=== PATIENT | female | born 1990 | race Caucasian/White ===

== ENCOUNTER 2017-09-07 18:12 | Emergency (ER) | payer BC, MEDICAID ==
[2017-09-07] MEDS ORDERED: NS 0.9% 1000 ML* 2,000 ML IV ONE (18:52)
[2017-09-07] MEDS ORDERED: diPHENhydraMINE IV* 50 MG/ML 1 ml VIAL (BENADRYL) IM ONE (18:52)
[2017-09-07] MEDS ORDERED: Ketorolac INJ* 30 MG/ML 1 ML VIAL IV ONE (18:52)
[2017-09-07] MEDS ORDERED: PROCHLORPERAZINE INJ 5 MG/ML 2 ML VIAL IV ONE (18:57)
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
[2017-09-07 21:00] VITALS: BP 127/71
--- NOTE | 2017-09-08 05:36 | ED ---
Polly Oshea Rebecca, scribed for Roni Bolton MD on 09/07/17 at 2024 . Progress - Progress Note Progress Note: Pt was signed out by Dr. Mars. Course/Dx - Course Course Of Treatment: Pt is a 26 y/o F with a Hx of migraine, came in with [facility] for a few days, currently wasnt responding to what she normally does at home. Dr. Mars medicated with fluids, Toradol, Benadryl, and Compazine. Pt reports feeling better and is requesting to be D/C at this time. - Diagnoses Provider Diagnoses: Headache Discharge - Sign-Out/Discharge Documenting (check all that apply): Discharge/Admit/Transfer - Discharge, Receiving Sign-Out Receiving patient FROM: Jose R Mars - Discharge Plan Condition: Stable Disposition: HOME Patient Education Materials: Acute Headache (ED) Referrals: Feliciano Calderon MD [Primary Care Provider] - 3 Days Additional Instructions: RETURN TO EMERGENCY DEPARTMENT FOR ANY RETURNING OR WORSENING SYMPTOMS. The documentation as recorded by the Polly avitia Rebecca accurately reflects the service I personally performed and the decisions made by me, Roni Botlon MD.
== END 2017-09-07 20:58 | disposition home or self-care (01) ==
LOC: ED 18:12
DX: G43.909 Migraine, unspecified, not intractable, without status migrainosus (principal); F41.0 Panic disorder [episodic paroxysmal anxiety]; Z88.5 Allergy status to narcotic agent; Z88.8 Allergy status to other drugs, medicaments and biological substances; Z87.891 Personal history of nicotine dependence
CPT/HCPCS: 96372; 96374; 96375; 99282; J0780; J1200; J1885

== ENCOUNTER 2018-07-03 05:48 | Emergency (ER) | payer BC ==
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
--- OUTSIDE RECORDS SUMMARY | 2018-07-03 05:55 | XMS REPORT ---
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 Problem Neuropathic pain G56.90 Active 486385936 of upper extremity Problem Balance problem R26.89 Active 790143230 Problem Hyperplastic polyp K63.5 Active 37351162 of sigmoid colon Problem Intractable G43.019 Active 108481123 migraine without aura and without status migrainosus Problem Mixed E78.2 Active 869686557 hyperlipidemia Problem Migraine without G43.009 Active 744139618 aura and without status migrainosus, not intractable Problem Lichen simplex, L28.0 Active 24421319 chronic Problem New daily G44.52 Active 915743268 persistent headache Problem BMI Z68.34 Active 303163613 34.0-34.9,adult Problem Dysthymic disorder F34.1 Active 35280383 Problem Obesity (BMI E66.9 Active [id number] 30.0-34.9) ALLERGIES Substance Reaction Event Type Date Status Paxil Unknown Drug Allergy Jun, Active Morphine Sulfate Unknown Drug Allergy Jun, Active ENCOUNTERS Encounter Location Date Diagnosis [facility] [address] [place], [place] [address] [facility] [address] [place], [place] [address] [facility] [address] [place], [place], [place] [address] infection J06.9 and Migraine without aura and without status migrainosus, not intractable G43.[address] [place], [place] [address] [facility] [address] [place], [place] [address] [place], [place] [address] [facility] [address] [place], [place] [address] [facility] [address] [place] [address] [facility] [address] [place] [place] [address] [facility] [address] [place] [address] [place], [place] [address] Jan, Panic disorder [place] agoraphobia F40.01 [address] Dec, [place] [address] [facility] [address] [place], [place] [address] [facility] [address] [place] [address] [place], [place], [place] [address] agoraphobia F40.01 ; Intractable migraine without aura and without status migrainosus G43.019 ; NSAID long-term use Z79.1 and Chest pressure R07.[address] [place], [place] [address] [place], [place] [address] [place], [place] [address] [facility] [address] [place], [place], [place] [address] test reading Z11.[address] [place], PPD screening test Z11.1 [place] [address] [facility] [address] [place], [place] [address] [facility] [address] [place], [place], [place] [address] examination related to employment Z02.1 ; Lichen simplex, chronic L28.0 ; Obesity (BMI 30.0-34.9) E66.9 and BMI 34.0-34.9,adult Z68.[address] [place], Dysthymic disorder F34.1 [place] [address] [facility] [address] [place], [place], [place] [address] pain R10.84 ; Dysthymic disorder F34.1 ; New daily persistent headache G44.52 ; Obesity (BMI 30-39.9) E66.9 and BMI 34.0-34.9,adult Z68.[address] [place], [facility] [place] [address] [facility] [address] [place], [place], [place] [address] pain R10.84 ; Other specified related conditions, unspecified trimester O26.899 ; New daily persistent headache G44.52 ; Obesity (BMI 30-39.9) E66.9 ; BMI 30.0-30.9,adult Z68.30 and Need for influenza vaccination Z23 [address] Dec, [facility] [place] [address] [facility] [address] [place], [place], [place] [address] abdominal pain R10.[address] Sep, [place] [address] [facility] [address] [place], [place] [address] [facility] [address] [place], [place] [address] [place], [facility] [place] [address] [facility] [address] [place] [address] [place] [facility] [address] [place] [address] [facility] [address] [place], [place] [address] [facility] [address] [place], [place] [address] abdominal pain R10.31 ; Right upper quadrant abdominal pain R10.11 and Balance problem R26.89 [place] [facility] [address] [place], [place] [address] [place], [place] [address] Geoff Gray [address] [place], [place] [address] Jun, Dysthymia F34.1 [place] [address] [facility] [address] [place], [place], [place]ysthym[place] F34.1 [place] [address] [place], [place] [address] [facility] [address] [place], [place] [address] [facility] [address] [place], [place] [address] agoraphobia F40.01 ; Dysthymic disorder F34.1 and Rash R21 [address] [place], Dysthymic disorder F34.1 [place] [address] agoraphobia F40.[address] [place], [place] [address] [place], Dysthymic disorder F34.1 [place] [address] agoraphobia F40.[address] [place], Dysthymic disorder F34.1 [place] [address] [place], [place] [address] [facility] [address] [place], [place] [address] immunization Z23 ; Dysthymic disorder F34.1 ; Pain in right leg M79.604 and Right lower quadrant abdominal tenderness R10.813 [place] [facility] [address] [place], [place] [address] [facility] [address] [place] [place] [address] [place] [place], [place] [address] [facility] [address] [place], [place] [address] [place] [facility] [address] [place], [place] [address] [facility] [address] [place], [place], [place] [address] extremity G56.90 ; Dysthymia F34.1 and Elevated blood pressure reading without diagnosis of hypertension R03.0 [facility] [address] [place] [address] [place], [place] [address] [facility] [address] [place] [address] [place], [place], Pain [place] M79.601 [place] [address] ; Pain of left arm M79.602 and Myalgia M79.1 Facilitated Enrollment - UNKNOWN Jun, [place] [facility] [address] [place], [place] [address] [facility] [address] [place], [place] [address] [facility] [address] [place] [address] [place], [place], [place] [address] agoraphobia F40.[address] [place], Panic disorder [place] agoraphobia F40.01 and [address] Dysthymia F34.1 [facility] [address] [place] [address] [place], [place] [address] Jun, Panic disorder with [place] agoraphobia F40.01 and [address] Dysthymia F34.[address] [place], Panic disorder [place] agoraphobia F40.01 [address] [place], Panic disorder [place] agoraphobia F40.01 and [address] Dysthymia F34.1 [facility] [address] [place] [address] [place], [place], [place] [address] agoraphobia F40.[address] [place], Dysthymia F34.[address] [place] disorder with agoraphobia [address] [address] [place], [place] [address] [place], Dysthymia F34.[address] [place] disorder with agoraphobia [address] [address] [place], [place] [address] [facility] [address] [place], [place] [address] [facility] [address] [place] [address] [place], [place], [place] [address] hematuria N30.[address] [place] [address] [place], [place], Tendonitis 726.90 [place] [address] [place], [place] [address] [facility] [address] [place] [address] [place], [place] [address] [facility] [address] [place] [address] [place], [place] [address] Jun, [place] [address] [facility] [address] [place] [address] [place], [place], Knee pain, [place] 719.46 [place] [address] [facility] [address] [place] [address] [place], [place], Knee pain, [place] 719.46 [place] [address] [facility] [address] [place] [address] [place], [place] [address] [facility] [address] [place] [address] [place], [place], Skin [place] 709.8 [place] [address] [facility] [address] [place] [address] [place], [place] [address] [place], [place], Sibilant rhonchi 786.07 [place] [address] [facility] [address] [place] [address] [place], [place], [place] [address] 300.4 ; Fatigue 780.79 and Rash 782.1 [facility] [address] [place], [place] [address] [facility] [address] [place] [address] [place], [place] [address] [place], [place] [address] [facility] [address] [place] [address] [place], [place], Scab[place] 133.0 [place] [address] [place] [id number] [facility] Oct, Impacted cerumen 380.4 [place] [address] [place], [place] [address] [place], [place] [address] [place], Dysthymic disorder 300.4 [place] and Posttraumatic stress [address] disorder [address] [place], Dysthymic disorder 300.4 [place] [address], [place], Dysthymic [place] 300.4 [place] [address] and Congenital hallux valgus 755.[address] [place], [place] [address] [place], Dysthymic disorder 300.4 [place] [address] [place], Dysthymic disorder 300.4 [place] and Posttraumatic stress [address] disorder [address], [place] [address], [place], [place] [address] 755.66 and Depression with anxiety [address], [place] [address], [place] [address], [place] [address] [place], [place] [address], [place] [address], [place], [place] [[place] [address] infection] 599.0 ; Pain in joint, lower leg 719.46 and Depression with anxiety 300.[address], [place] [address] [place], [place] [address] defined subpopulation V70.5 IMMUNIZATIONS No Known Immunizations SOCIAL HISTORY Never Assessed REASON FOR REFERRAL FUNCTIONAL STATUS PLAN OF CARE Activity Details Follow Up prn Reason: VITAL SIGNS Temperature 98.5 degrees Fahrenheit 2018-06-25 Heart Rate 20 2018-06-25 Weight 194.2 2018-06-25 Height 5'5" in 2018-06-25 BMI 32.31 kg/m2 2018-06-25 Oximetry 98 % 2018-06-25 Blood pressure systolic 118 mm Hg 2018-06-25 Blood pressure diastolic 80 mm Hg 2018-06-25 MEDICATIONS Medication Instructions Dosage Frequency Start End Duration Status Date Date Cymbalta 30 MG Orally Once a 1 capsule 24h 21 Jun, day(s) Not-Takin day 2016 g Topiramate 50 Orally Twice a 1 tablet 12h Mar, day(s) Not-Takin MG day 2016 g Amoxicillin 500 Orally three x 1 capsule Active mg daily Sumatriptan Subcutaneous 0.5 ml as 12h Jun, day(s) Active Succinate 6 Twice a day needed 2019 MG/0.5ML Omeprazole 40 Orally Once a 1 capsule 24h Not-Takin MG day g Fluticasone Nasally Once a 1 spray in 24h 25 Jun, day(s) Active Propionate 50 day each 2018 MCG/ACT nostril Ibuprofen 200 Orally Three 1 tablet 8h Active MG times a day with food or milk as needed Alprazolam 0.5 Orally BID prn 1 tablet, May, Active MG panic MDD 2 2015 Aleve 220 MG Orally every 12 1 tablet 12h Not-Takin hrs as needed g Depo-Provera 1 ml Not-Takin 150 MG/ML g PROCEDURES Procedure Date Ordered Result Body Site SPECIMEN HANDLING Jun 25, 2018 BODY MASS INDEX DOCD Jun 25, 2018 SMOKING + 2ND HAND ASSESSED Jun 25, 2018 Oxygen saturation results documented and reviewed Jun 25, 2018 BLOOD PRESSURE, MEASURED Jun 25, 2018 RESULTS Name Result Date Reference Range -Urine/Lab Specimen Collection 2018-06-25 -INFLUENZA TYPE A/B AND RSV RNA,QL RT-PCR 2018-06-25 INFLUENZA A RNA,PCR NOT DETECTED NOT DETECTED INFLUENZA B RNA,PCR NOT DETECTED NOT DETECTED RSV RNA,PCR NOT DETECTED NOT DETECTED REASON FOR VISIT cold , c/o pain in both ears,migraines for a month, tooth ache ,and nasal congestion since monday., Patient is taking amoxillin 500mg prescribed by her dentist. Went to [facility] and was diagnose with Pelvic floor disfuntion and painful bladder syndrome, [facility]ACI requested. Insurance Providers [facility] Health Member Patient Patient Patient Patient Patient Subscriber Subscriber Subscriber Group Insurance Plan Plan Plan Plan ID Relationship Address Phone Name Date of ID Name Date of No Type Insurance Insurance Insurance Coverage to Subscriber Address Phone Name Dates Medicaid [id number] [phone] Medicaid self [place] [id number] Wrap [facility] [address] [place] [address] Blue [phone] Blue self Macken[place] [id number] Choice Opt [phone] 89 Choice Opt e [place] [address] [place] [address] FQHC Slide [phone] FQHC Slide self Mack[place] [id number] F Medical [place] 02 F Medical [place] 50 [place] [address] 50 percent FQHC Slide [phone] FQHC Slide self Macken[place] [id number] F Dental [place] 02 F Dental [place] [address] 50 Percent Excellus [phone] Excellus self Macken[place] [id number] Essential [id number] 89 Essential e [place] 6 Plan 1 2 [place] Plan 1 2 Medical [address] Medical FHP [place]zmán [phone] FHP [place]zmán self Mackenzi [id number] Plan Med [id number] Plan Med e [place] 8 [facility] [address] Medicaid [id number] Medicaid self Vinoden[place] [id number] [facility] 00 e [place] [address] [facility] Slide [phone] [facility] Slide self Macken[place] [id number] F Family [place] 02 [place] [address] Planning 70 Percent 70 Percent FHP Guzmán [phone] FHP [place]zmán self Mackenzi [id number] Plan [id number] Attn 83 Plan e [place] Dental Claims Dental HPlex Dept HPlex [facility] [address] Blue [phone] Blue self Mackenzi [id number] Choice Opt 9255 Attn 83 Choice Opt e [place] GG457 Kinney Claims [id number] Kinney Hplex [place] Dept Hplex [place] [facility] [address] Blue [phone] Blue self Mackenzi [id number] Choice Opt [id number] 89 Choice Opt e [place] 8 Medical [place] [address] HealthPlex [phone] HealthPlex self Farnazi [id number] [phone] Attn 83 [id number] e Chery [id number] Dental Claims Dental Exchange Dept Exchange [facility] [address] Blue [phone] Blue self [place] [id number] Choice Opt 9255 Attn 83 Choice Opt e Chery GG457 Kinney Claims [id number] Kinney Hplex [place] Dept Hplex [place] [facility] [address] Case [phone] Case self [place] [id number] Management [place] 02 Management e [facility] [address] [facility] MEDICAL (GENERAL) HISTORY Type Description Date Medical [...]
--- OUTSIDE RECORDS SUMMARY | 2018-07-03 05:55 | XMS REPORT ---
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 Problem Neuropathic pain G56.90 Active 957695501 of upper extremity Problem Obesity (BMI E66.9 Active [id number] 30.0-34.9) Problem Hyperplastic polyp K63.5 Active 53926157 of sigmoid colon Problem Intractable G43.019 Active 277425494 migraine without aura and without status migrainosus Problem Lichen simplex, L28.0 Active 25214595 chronic Problem Balance problem R26.89 Active 577735649 Problem New daily G44.52 Active 427531072 persistent headache Problem BMI Z68.34 Active 136062087 34.0-34.9,adult Problem Dysthymic disorder F34.1 Active 85589405 ALLERGIES No Information ENCOUNTERS Encounter Location Date Diagnosis [facility] [address] [place], [place] [address] [facility] [address] [place], [place] [address] [place], [place] [address] [facility] [address] [place] [address] Jun, [place] [address] [facility] [address] [facility] [place], [place] [address] [facility] [address] [place] [address] [place], [place] [address] [facility] [address] [facility] [address] [place], [place] [address] [facility] [address] [facility] [place], [place] [address] Jan, Panic disorder with [place] agoraphobia F40.01 [address] Dec, [place] [address] [facility] [address] [place] [address] [place], [place] [address], [place], [place] [address] agoraphobia F40.01 ; Intractable migraine without aura and without status migrainosus G43.019 ; NSAID long-term use Z79.1 and Chest pressure R07.[address] [place], [place] [address] [place], [place] [address] [place], [place] [address], [place], [place] [address] test reading Z11.[address] [place], PPD screening test Z11.1 [place] [address], [place] [address], [place], [place] [address] examination related to employment Z02.1 ; Lichen simplex, chronic L28.0 ; Obesity (BMI 30.0-34.9) E66.9 and BMI 34.0-34.9,adult Z68.[address] [place], Dysthymic disorder F34.1 [place] [address], [place], [place] [address] pain R10.84 ; Dysthymic disorder F34.1 ; New daily persistent headache G44.52 ; Obesity (BMI 30-39.9) E66.9 and BMI 34.0-34.9,adult Z68.[address] [place] Jan, Health Medical [place] [address] [facility] [address] [facility] [place], [place], [place] [address] pain R10.84 ; Other specified related conditions, unspecified trimester O26.899 ; New daily persistent headache G44.52 ; Obesity (BMI 30-39.9) E66.9 ; BMI 30.0-30.9,adult Z68.30 and Need for influenza vaccination Z23 [place] Dec, [place] [address] [facility] [address] [place], [place], [place] [address] abdominal pain R10.31 [facility] [address] [facility] Sep, [place] [address] [facility] [address] [place], [place] [address] [facility] [address] [place], [place] [address] Sep, [facility] Medical [place] [address] [facility] [address] [place], [place] [address] [place] [facility] [address] [place] [address] [facility] [address] [place], [place] [address] [facility] [address] [place], [place], [place] [address] abdominal pain R10.31 ; Right upper quadrant abdominal pain R10.11 and Balance problem R26.89 [place] [facility] [address] [place], [place] [address] [facility] [address] [facility] Jun, [place] [address] Jun, [facility] Medical [place] [address] [facility] [address] [facility] Jun, Dysthymia F34.1 [place] [address] [facility] [address] [facility] [place], Jun, [place] F34.1 [place] [address] [facility] [address] [facility] [place], [place] [address] [facility] [address] [place], [place] [address] [place] [facility] [address] [place], [place], [place] [address] agoraphobia F40.01 ; Dysthymic disorder F34.1 and Rash R21 [facility] [address] [facility] [place], Dysthymic disorder F34.1 [place] [address] agoraphobia F40.01 [facility] [address] [facility] [place], [place] [address] [facility] [address] [facility] [place], Dysthymic disorder F34.1 [place] and Panic disorder [place] [address] agoraphobia F40.01 [facility] [address] [facility] [place], Dysthymic disorder F34.1 [place] [address] [facility] [address] [place] [address] [place], [place] [address] [facility] [address] [facility] [place], [place] [address] immunization Z23 ; Dysthymic disorder F34.1 ; Pain in right leg M79.604 and Right lower quadrant abdominal tenderness R10.813 [facility] [address] [facility] [place], [place] [address] [facility] [address] [facility] [address] [place], [address] [place] [address] [facility] [address] [place] [address] [place], [place] [address] [facility] [address] [place], [place] [address] [place] [facility] [address] [place], [place] [address] [place] [facility] [address] [place], [place], [place] [address] extremity G56.90 ; Dysthymia F34.1 and Elevated blood pressure reading without diagnosis of hypertension R03.0 [place] [facility] [address] [place], [place] [address] [place] [facility] [address] [place], [place], Pain in [place] M79.601 [place] [address] ; Pain of left arm M79.602 and Myalgia M79.1 Facilitated Enrollment - UNKNOWN Jun, [place] [facility] [address] [place], [place] [address] [facility] [address] [place], [place] [address] [facility] [address] [place], [place], [place] [address] agoraphobia F40.[address] Jun, Panic disorder with Street [place] agoraphobia F40.01 and [address] Dysthymia F34.1 [facility] [address] [facility] [place], [place] [address] Jun, Panic disorder [place] agoraphobia F40.01 and [address] Dysthymia F34.[address] Jun, Panic disorder [place] agoraphobia F40.01 [address] [place], Panic disorder [place] agoraphobia F40.01 and [address] Dysthymia F34.1 [facility] [address] [place] [address] [place], [place], [place] [address] agoraphobia F40.[address] [place], Dysthymia F34.1 and Panic [place] disorder with agoraphobia [address] [address]40[address] [place], [place] [address] [place], Dysthymia F34.1 and Panic [place] disorder with agoraphobia [address] [address] [place], [place] [address] [facility] [address] [place], [place] [address] [facility] [address] [place], [place], [place] [address] hematuria N30.01 [facility] [address] [facility] [place], Nov, [place]end[place]itis 726.90 [place] [address] Nov, [place] [address] [facility] [address] [place], [place] [address] [facility] [address] [facility] [place], [place] [address] Jun, [place] [address] [facility] [address] [facility] [place], Jun, Knee pain, [place] 719.46 [place] [address] [facility] [address] [facility] [place], [place], Knee pain, [place] 719.46 [place] [address] [facility] [address] [facility] [place], [place] [address] [facility] [address] [facility] [place], [place], [place] 709.8 [place] [address] [facility] [address] [facility] [place], [place] [address] [facility] [address] [facility] [place], [place], Sibil[place] 786.07 [place] [address] [facility] [address] [facility] [place], [place], [place] [address] 300.4 ; Fatigue 780.79 and Rash 782.1 [facility] [address] [place] [address] [place], [place] [address] [facility] [address] [facility] [place], [place] [address] Jan, [place] [address] [facility] [address] [facility] [place], Nov, [place]ab[place] 133.0 [place] [address] Oct, Impacted cerumen 380.4 [place] [address] [facility] [address] [facility] [place], [place] [address] [facility] [address] [facility] [place], [place] [address] Jul, Dysthymic disorder 300.4 [place] and Posttraumatic stress [address] disorder [address] Jul, Dysthymic disorder 300.4 [place] [address] [facility] [address] [facility] [place], [place], Dysthym[place] 300.4 [place] [address] and Congenital hallux valgus 755.[address] Jul, [place] [address] Jun, Dysthymic disorder 300.4 [place] [address] Jun, Dysthymic disorder 300.4 [place] and Posttraumatic stress [address] disorder 309.81 [facility] [address] [facility] [place], [place] [address] [facility] [address] [facility] [place], [place] [address] 755.66 and Depression with anxiety 300.4 [facility] [address] [facility] [place], [place] [address] [facility] [address] [facility] [place], [place] [address] [facility] [address] [facility], [place] [address] [place], [place] [address] [facility] [address] [facility] [place], [place] [address] [facility] [address] [facility] [place], [place], U[place] [address] infection] 599.0 ; Pain in joint, lower leg 719.46 and Depression with anxiety 300.4 [facility] [address] [facility] [place], [place] [address] Oct, [place] [address] defined subpopulation V70.5 IMMUNIZATIONS No Known Immunizations SOCIAL HISTORY Never Assessed REASON FOR REFERRAL FUNCTIONAL STATUS PLAN OF CARE VITAL SIGNS MEDICATIONS Unknown Medications PROCEDURES No Known procedures RESULTS No Results REASON FOR VISIT Information Insurance Providers [facility] Member Patient Patient Patient Patient Patient Subscriber Subscriber Subscriber Group Insurance Plan Plan Plan Plan ID Relationship Address Phone Name Date of ID Name Date of No Type Insurance Insurance Insurance Coverage to Subscriber Address Phone Name Dates [facility] [phone] [facility] self [place] [id number] Attn [id number] e Chery [id number] Dental Claims Dental Exchange Dept Exchange [facility] [address] FHP Guzmán [phone] FHP Guzmán self [place] [id number] Plan Med [id number] Plan Med e [place] 8 [facility] [address] FLCH Slide [phone] FLCH Slide self [place] [id number] F Family [place] 02 [place] [address] Planning 70 Percent 70 Percent Blue [phone] Blue self Mack[place] [id number] Choice Opt [id number] 89 Choice Opt e [place] 4 [place] Medical [address] FQHC Slide [phone] FQHC Slide self [place] [id number] F Dental [place] 02 F Dental [place] [address] 50 Percent FQHC Slide [phone] FQHC Slide self [place] [id number] F Medical [place] 02 F Medical [place] [address] 50 percent Medicaid [id number] [phone] Medicaid self [place]en[place] [id number] [facility] 00 e [place] [address] FHP Guzmán [phone] FHP Guzmán self Mackenzi [id number] Plan [id number] Attn 83 Plan e [place] Dental Claims Dental HPlex Dept HPlex [facility] [address] Blue [phone] Blue self Macken[place] [id number] Choice Opt 9255 Attn 83 Choice Opt e [place] [id number] Barber Claims [id number] Barber Hplex [place] Dept Hplex [place] [facility] [address] Blue [phone] Blue self Mack[place] [id number] Choice Opt [id number] 89 Choice Opt e [place] 8 Medical [place] Medical [address] Medicaid [phone] Medicaid self [place] [id number] Wrap [facility] 56 Wrap e [place] [address] Blue [phone] Blue self Mackenzi [id number] Choice Opt 9255 Attn 83 Choice Opt e [place] [id number] Barber Claims [id number] Barber Hplex [place] Dept Hplex [place] [facility] [address] Case [phone] Case self [place] [id number] Management Geoff Gray 02 Management [facility] [address] [facility] MEDICAL (GENERAL) HISTORY Type [...]
--- OUTSIDE RECORDS SUMMARY | 2018-07-03 05:55 | XMS REPORT ---
:1990 Author Organization [facility] Address [address] [place] [address] Care Team Providers Name Role Phone Feliciano Calderon Unavailable Unavailable PROBLEMS Type Condition ICD9-CM [id number] Onset Condition SNOMED Code Code Code Dates Status Problem Mixed E78.2 Active 735678854 hyperlipidemia Problem Panic disorder F40.01 Active 38587921 with agoraphobia Problem Neuropathic pain G56.90 Active 381337607 of upper extremity Problem Obesity (BMI E66.9 Active [id number] 30.0-34.9) Problem Hyperplastic polyp K63.5 Active 96719274 of sigmoid colon Problem Intractable G43.019 Active 194967178 migraine without aura and without status migrainosus Problem Lichen simplex, L28.0 Active 50426193 chronic Problem Balance problem R26.89 Active 092440254 Problem New daily G44.52 Active 534738687 persistent headache Problem BMI Z68.34 Active 458314931 34.0-34.9,adult Problem Dysthymic disorder F34.1 Active 70077179 ALLERGIES No Information ENCOUNTERS Encounter Location Date Diagnosis [facility] [address] [place], [place] [address] [facility] [address] [place], [place] [address] [facility] [address] [place], [place] [address] [facility] [address] [place] [address] [facility] [address] [place] [address] [place], [facility] [place] [address] [facility] [address] [facility] [place], [place] [address] [facility] [address] [facility] [place], [place] [address] [facility] [address] [facility] [address] [place], [address] [address] [facility] [address] [facility] [place], [place] [address] Jan, Panic disorder with Street [place], [place] agoraphobia F40.01 [address] [place], [place] [address] [facility] [address] [facility] [place], [place] [address] [facility] [address] [place] [address] [place], [place], [place] [address] agoraphobia F40.01 ; Intractable migraine without aura and without status migrainosus G43.019 ; NSAID long-term use Z79.1 and Chest pressure R07.[address] [place], [place] [address] [place], [place] [address] [place], [place] [address] [facility] [address] [place] [address] [place], [place], [place] [address] test reading Z11.[address] [place], PPD screening test Z11.1 [place] [address] [facility] [address] [place] [address] [place], [place] [address] [place], [place], [place] [address] examination related to employment Z02.1 ; Lichen simplex, chronic L28.0 ; Obesity (BMI 30.0-34.9) E66.9 and BMI 34.0-34.9,adult Z68.[address] [place], Dysthymic disorder F34.1 [place] [address] [facility] [address] [facility] [place], [place], [place] [address] pain R10.84 ; Dysthymic disorder F34.1 ; New daily persistent headache G44.52 ; Obesity (BMI 30-39.9) E66.9 and BMI 34.0-34.9,adult Z68.[address] Jan, [facility] Medical [place] [address] [facility] [address] [place], [place], [place] [address] pain R10.84 ; Other specified related conditions, unspecified trimester O26.899 ; New daily persistent headache G44.52 ; Obesity (BMI 30-39.9) E66.9 ; BMI 30.0-30.9,adult Z68.30 and Need for influenza vaccination Z23 [address] Dec, [facility] [place] [address] [facility] [address] [place] [place], [place], [place] [address] abdominal pain R10.[address] [place], [place] [address] [place] [facility] [address] [place] [place], [place] [address] [facility] [address] [place] [place], [place] [address] Sep, [facility] [place] [address] [facility] [address] [place] [place], [place] [address] [facility] [address] [place] [place], [place] [address] [facility] [address] [place], [place] [address] [facility] [address] [place], [place], [place] [address] abdominal pain R10.31 ; Right upper quadrant abdominal pain R10.11 and Balance problem R26.89 [place] [facility] [address] [place], [place] [address] [place], [place] [address] Jun, [facility] Medical [place] [address] [facility] [address] [place] [address] Jun, Dysthymia F34.1 [place] [address] [facility] [address] [facility] [place], [place], [place] F34.1 [place] [address] [facility] [address] [facility] [place], [place] [address] [facility] [address] [place], [place] [address] [place] [facility] [address] [place], [place], [place] [address] agoraphobia F40.01 ; Dysthymic disorder F34.1 and Rash R21 [facility] [address] [place] [address] [place], Dysthymic disorder F34.1 [place] and Panic disorder with [address] agoraphobia F40.01 [facility] [address] [place] [address] [place], [place] [address] [facility] [address] [place] [address] [place], Dysthymic disorder F34.1 [place] and Panic disorder with [address] agoraphobia F40.01 [facility] [address] [place] [address] [place], Dysthymic disorder F34.1 [place] [address] [facility] [address] [place] [address] [place], [place] [address] [facility] [address] [facility] [place], [place] [address] immunization Z23 ; Dysthymic disorder F34.1 ; Pain in right leg M79.604 and Right lower quadrant abdominal tenderness R10.813 [facility] [address] [facility] [place], [place] [address] [facility] [address] [facility] [address] [place], [address] [place] [address] [facility] [address] [place] [address] [place], [place] [address] [facility] [address] [place], [place] [address] [place] [facility] [address] [place], [place] [address] [facility] [address] [place], [place], [place] [address] extremity G56.90 ; Dysthymia F34.1 and Elevated blood pressure reading without diagnosis of hypertension R03.0 [place] [facility] [address] [place] [place], [place] [address] [place] [facility] [address] [place], 08 Apr, 2016 Pain in [place] M79.601 [place] [address] ; Pain of left arm M79.602 and Myalgia M79.1 Facilitated Enrollment - UNKNOWN [place], [place] [facility] [address] [place] [place], [place] [address] [place] [facility] [address] [place], [place] [address] [place] [facility] [address] [place], [place], [place] [address] agoraphobia F40.[address] [place], Panic disorder [place] agoraphobia F40.01 and [address] Dysthymia F34.1 [place] [facility] [address] [place], [place] [address] [place], Panic disorder [place] agoraphobia F40.01 and [address] Dysthymia F34.[address] Jun, Panic disorder [place] agoraphobia F40.01 [address] [place], Panic disorder [place] agoraphobia F40.01 and [address] Dysthymia F34.1 [facility] [address] [facility] [place], [place], [place] [address] agoraphobia F40.[address] [place], Dysthymia F34.1 and [place] disorder with agoraphobia [address] [address] [place], [place] [address] [place], Dysthymia F34.1 and [place] disorder with agoraphobia [address] [address] [place], [place] [address] [facility] [address] [place] [place], [place] [address] [place] [facility] [address] [place], [place], [place] [address] hematuria N30.01 [place] [facility] [address] [place], Nov, Tendonitis 726.90 [place] [address] [place], [place] [address] [facility] [address] [facility] [place], [place] [address] [facility] [address] [place] [address] [place], [place] [address] [place], [place] [address] [facility] [address] [facility] [place], [place], Knee pain, [place] 719.46 [place] [address] [facility] [address] [facility] [place], [place], Knee pain, [place] 719.46 [place] [address] [facility] [address] [facility] [place], [place] [address] [place], [place], [place] 709.8 [place] [address] [facility] [address] [place] [address] [place], [place] [address] [facility] [address] [place] [address] [place], [place], Sibilant rhonchi 786.07 [place] [address] [facility] [address] [place] [address] [place], [place], [place] [address] 300.4 ; Fatigue 780.79 and Rash 782.1 [facility] [address] [place] [address] [place], [place] [address] [facility] [address] [place] [address] [place], [place] [address] [place], [place] [address] [facility] [address] [place] [address], Nov, Scabies 133.0 [place] [address] Oct, Impacted cerumen 380.4 [place] [address] [place], [place] [address] [place], [place] [address] Jul, Dysthymic disorder 300.4 [place] and Posttraumatic stress [address] disorder [address] Jul, Dysthymic disorder 300.4 [place] [address] [facility] [address] [facility] [place], [place], Dysthym[place] 300.4 [place] [address] and Congenital hallux valgus [address]55.[address] [place], [place] [address] Jun, Dysthymic disorder 300.4 [place] [address] Jun, Dysthymic disorder 300.4 [place] and Posttraumatic stress [address] disorder 309.81 [facility] [address] [facility] [place], [place] [address] [facility] [address] [facility] [place], [place], [place] [address] 755.66 and Depression with anxiety 300.4 [facility] [address] [facility] [place], [place] [address] [facility] [address] [facility], [place] [address] [facility] [address] [place] [address], [place] [address] [place], [place] [address] [facility] [address] [facility], [place] [address] [facility] [address] [facility] [place], [place], [place] [[place] [address] infection] 599.0 ; Pain in joint, lower leg 719.46 and Depression with anxiety 300.4 [facility] [address] [place] [address], [place] [address] Oct, [place] [address] defined subpopulation V70.5 IMMUNIZATIONS No Known Immunizations SOCIAL HISTORY Never Assessed REASON FOR REFERRAL FUNCTIONAL STATUS PLAN OF CARE VITAL SIGNS MEDICATIONS Unknown Medications PROCEDURES No Known procedures RESULTS No Results REASON FOR VISIT acute triage dental Insurance Providers [employer] [facility] Member Patient Patient Patient Patient Patient Subscriber Subscriber Subscriber Group Insurance Plan Plan Plan Plan ID Relationship Address Phone Name Date of ID Name Date of No Type Insurance Insurance Insurance Coverage to Subscriber Address Phone Name Dates Angélica MARISCAL [phone] [facility] Ramirez Singh [id number] Plan Med [id number] Plan Med e [place] 8 [facility] [address] Blue [phone] Blue self Mackenzi [id number] Choice Opt 9255 Attn 83 Choice Opt e [place] [id number] [place] Claims [id number] [place] Hplex [place] [facility] [address] Blue [phone] Blue self Mackenzi [id number] Choice Opt 9255 Attn 83 Choice Opt e [place] [id number] [place] Claims [id number] [place] Hplex [place] [facility] Hplex [place] [facility] [address] Blue [phone] Blue self Mackenzi [id number] Choice Opt [id number] 89 Choice Opt e [place] [address] [facility] [address] Case [phone] Case self Mackenzi [id number] Management [place] 02 Management e [facility] [address] [facility] Blue [phone] Blue self Mackenzi [id number] Choice Opt [phone] 89 Choice Opt e [place] 8 [facility] Medical [address] [facility] Slide [phone] [facility] Slide self Mackenzi [id number] F Family [place] [address] Planning 70 Percent 70 Percent FHP Guzmán [phone] FHP Guzmán self Mackenzi [id number] Plan [id number] Attn 83 Plan e [place] Dental Claims Dental HPlex Dept HPlex [facility] [address] Medicaid [id number] [phone] Medicaid self Mackenzi [id number] Wrap [facility] 56 Wrap e [place] [address] [facility] Slide [phone] [facility] Slide self Mackenzi [id number] F Dental [place] 02 F Dental [place] 50 [place] [id number] 50 Percent Medicaid [id number] [phone] Medicaid self Mackenzi [id number] [facility] 00 e [place] [address] [facility] Slide [phone] [facility] Slide self Mackenzi [id number] F Medical [place] 02 F Medical [place] 50 [place] [id number] 50 percent MEDICAL (GENERAL) HISTORY Type Description Date Medical [...]
[2018-07-03] MEDS ORDERED: Ondansetron INJ* 2 MG/ML VIAL IV ONE (06:06)
[2018-07-03] MEDS ORDERED: Ketorolac INJ* 30 MG/ML 1 ML VIAL IV PUSH ONE (06:07)
[2018-07-03] MEDS ORDERED: NS 0.9% 1000 ML** 2,000 ML IV ONE (06:07)
[2018-07-03 06:32] LABS: Hematocrit 38 % (35-47); Hemoglobin 12.9 g/dl (12.0-16.0); Mean Corpuscular HGB Conc 35 g/dl (31-36); Mean Corpuscular Hemoglobin 32 pg (27-31); Mean Corpuscular Volume 92 fL (80-97); Mean Platelet Volume 9.4 fL (7.4-10.4); Platelet Count 218 10^3/ul (150-450); Red Blood Count 4.08 10^6/ul (4.00-5.40); Red Cell Distribution Width 13 % (10.5-15); White Blood Count 27.6 10^3/ul (3.5-10.8)
[2018-07-03 06:50] LABS: Albumin 3.9 g/dL (3.2-5.2); Albumin/Globulin Ratio 1.2 (1-3); BUN/Creatinine Ratio 10.1 (8-20); C Reactive Protein 226.31 mg/L (<8.01); Calcium 8.8 mg/dL (8.6-10.3); EGFR African American 121.7 (>60); EGFR Non-African American 100.6 (>60); Globulin 3.2 g/dL (2-4); Potassium 2.8 mmol/L (3.5-5.0); Total Bilirubin 0.6 mg/dL (0.2-1.0); Total Protein 7.1 g/dL (6.4-8.9)
[2018-07-03 06:57] LABS: Influenza A Molecular NEGATIVE (Negative); Influenza B Molecular NEGATIVE (Negative)
--- NOTE | 2018-07-03 07:12 | ED ---
Nausea/Vomiting/Diarrhea HPI - HPI Summary HPI Summary: Patient is a 27-year-old female with a history of agoraphobia presenting to the ED with N/V x 5 days including F/W/C. Denies hematemesis, melena, diarrhea, constipation, UTI sxs. She was recently seen by her PCP and flu swab was negative. She has never had anything like this before. She does endorse body aches, which have improved over the past few days. She is vomiting 10+ x per day. Vital signs on arrival are 99.1, tachycardia at 127, respirations 20, 99% on room air and 142/91. - History of Current Complaint Chief Complaint: EDFluSymptoms Stated Complaint: FLU LIKE SYMPTOMS Time Seen by Provider: 07/03/18 06:00 Hx Obtained From: Patient ?: No Onset/Duration: Sudden Onset Timing: Constant Severity Initially: Mild Severity Currently: Mild Pain Intensity: 8 Pain Scale Used: 0-10 Numeric Aggravating Factor(s): Nothing Alleviating Factor(s): Nothing Vomiting Frequency: Every 15-60 minutes Nausea/Vomiting Duration: 3-7 days Vomiting Characteristics: Retching Diarrhea Presence: No - Risk Factors Influenza Risk Factors: Negative Surgical Obstruction Risk Factor(s): Negative - Allergies/Home Medications Allergies/Adverse Reactions: Allergies Allergy/AdvReac Type Severity Reaction Status Date / Time paroxetine [From Paxil] Allergy Intermediate Hives Verified 07/03/18 05:53 morphine AdvReac Nausea And Verified 07/03/18 05:53 Vomiting PMH/Surg Hx/FS Hx/Imm Hx Previously Healthy: Yes Endocrine/Hematology History: Denies: Hx Diabetes Cardiovascular History: Denies: Hx Hypertension, Hx Pacemaker/ICD History: Denies: Hx Renal Disease Sensory History: Denies: Hx Hearing Aid Neurological History: Reports: Hx Headaches, Hx Migraine Denies: Hx CVA Psychiatric History: Reports: Hx Anxiety, Hx Panic Disorder - ANXIETY - Surgical History Surgery Procedure, Year, and Place: TIB/FIB RIGHT LEG COMPOUND FIX WITH [place] 2005. BUNIONECTOMY 2013-PLATE IN RIGHT FOOT. SCOPE ON RIGHT KNEE - Immunization History Hx Pertussis Vaccination: No Immunizations Up to Date: Yes Infectious Disease History: No Infectious Disease History: Denies: Traveled Outside the [place] in Last 30 Days - Social History Occupation: Employed Full-time Lives: With Family Alcohol Use: Rare Hx Substance Use: No Substance Use Type: Reports: None Hx Tobacco Use: Yes Smoking Status (MU): Former Smoker Review of Systems Constitutional: Negative Negative: Fever, Chills, Fatigue, Skin Diaphoresis Negative: Dental Pain Negative: Palpitations, Chest Pain Negative: Shortness Of Breath, Cough Positive: Abdominal Pain, Vomiting, Nausea Genitourinary: Negative Positive: no symptoms reported, see HPI Positive: Arthralgia - back pain Skin: Negative All Other Systems Reviewed And Are Negative: Yes Physical Exam Triage Information Reviewed: Yes Vital Signs On Initial Exam: Initial Vitals Temp Pulse Resp BP Pulse Ox 99.1 F 127 20 142/91 99 07/03/18 05:49 07/03/18 05:49 07/03/18 05:49 07/03/18 05:49 07/03/18 05:49 Vital Signs Reviewed: Yes Appearance: Positive: Ill-Appearing Skin: Positive: Diaphoretic Head/Face: Positive: Normal Head/Face Inspection Eyes: Positive: EOMI, SJ Neck: Positive: Supple, No Lymphadenopathy Respiratory/Lung Sounds: Positive: Clear to Auscultation, Breath Sounds Present Cardiovascular: Positive: RRR, Pulses are Symmetrical in both Upper and Lower Extremities Musculoskeletal: Positive: Other - pain to the mid lower back without pain to the CVA bilaterally Neurological: Positive: Sensory/Motor Intact, Alert, Oriented to Person Place, Time AVPU Assessment: Alert Diagnostics - Vital Signs Vital Signs Temp Pulse Resp BP Pulse Ox 07/03/18 06:52 97 128/74 98 07/03/18 06:51 97 99 07/03/18 05:49 99.1 F 127 20 142/91 99 - Laboratory Lab Results: Lab Results 07/03/18 07/03/18 07/03/18 Range/Units 06:26 06:26 06:27 WBC 27.6 H (3.5-10.8) 10^3/ul RBC 4.08 (4.00-5.40) 10^6/ul Hgb 12.9 (12.0-16.0) g/dl Hct 38 (35-47) % MCV 92 (80-97) fL MCH 32 H (27-31) pg MCHC 35 (31-36) g/dl RDW 13 (10.5-15) % Plt Count 218 (150-450) 10^3/ul MPV 9.4 (7.4-10.4) fL Neut % (Auto) Pending Lymph % (Auto) Pending [place] % (Auto) Pending Eos % (Auto) Pending Baso % (Auto) Pending Absolute Neuts (auto) Pending Absolute Lymphs (auto) Pending Absolute Monos (auto) Pending Absolute Eos (auto) Pending Absolute Basos (auto) Pending Absolute Nucleated RBC Pending Nucleated RBC % Pending Sodium 134 L (135-145) mmol/L Potassium 2.8 L (3.5-5.0) mmol/L Chloride 102 (101-111) mmol/L Carbon Dioxide 17 L (22-32) mmol/L Anion Gap 15 H (2-11) mmol/L BUN 7 (6-24) mg/dL Creatinine 0.69 (0.51-0.95) mg/dL Est GFR ( Amer) 121.7 (>60) Est GFR (Non-Af Amer) 100.6 (>60) BUN/Creatinine Ratio 10.1 (8-20) Glucose 137 H (70-100) mg/dL Lactic Acid 1.4 (0.5-2.0) mmol/L Calcium 8.8 (8.6-10.3) mg/dL Total Bilirubin 0.60 (0.2-1.0) mg/dL AST 13 (13-39) U/L ALT 16 (7-52) U/L Alkaline Phosphatase 97 (34-104) U/L C-Reactive Protein 226.31 H (<8.01) mg/L Total Protein 7.1 (6.4-8.9) g/dL Albumin 3.9 (3.2-5.2) g/dL Globulin 3.2 (2-4) g/dL Albumin/Globulin Ratio 1.2 (1-3) Influenza A (Rapid) (Negative) Influenza B (Rapid) (Negative) 07/03/18 Range/Units 06:44 WBC (3.5-10.8) 10^3/ul RBC (4.00-5.40) 10^6/ul Hgb (12.0-16.0) g/dl Hct (35-47) % MCV (80-97) fL MCH (27-31) pg MCHC (31-36) g/dl RDW (10.5-15) % Plt Count (150-450) 10^3/ul MPV (7.4-10.4) fL Neut % (Auto) Lymph % (Auto) [place] % (Auto) Eos % (Auto) Baso % (Auto) Absolute Neuts (auto) Absolute Lymphs (auto) Absolute Monos (auto) Absolute Eos (auto) Absolute Basos (auto) Absolute Nucleated RBC Nucleated RBC % Sodium (135-145) mmol/L Potassium (3.5-5.0) mmol/L Chloride (101-111) mmol/L Carbon Dioxide (22-32) mmol/L Anion Gap (2-11) mmol/L BUN (6-24) mg/dL Creatinine (0.51-0.95) mg/dL Est GFR ( Amer) (>60) Est GFR (Non-Af Amer) (>60) BUN/Creatinine Ratio (8-20) Glucose (70-100) mg/dL Lactic Acid (0.5-2.0) mmol/L Calcium (8.6-10.3) mg/dL Total Bilirubin (0.2-1.0) mg/dL AST (13-39) U/L ALT (7-52) U/L Alkaline Phosphatase (34-104) U/L C-Reactive Protein (<8.01) mg/L Total Protein (6.4-8.9) g/dL Albumin (3.2-5.2) g/dL Globulin (2-4) g/dL Albumin/Globulin Ratio (1-3) Influenza A (Rapid) Negative (Negative) Influenza B (Rapid) Negative (Negative) Result Diagrams: 07/03/18 11:15 07/03/18 06:26 Lab Statement: Any lab studies that have been ordered have been reviewed, and results considered in the medical decision making process. Naus/Vom/Diarrhea Course/Dx - Course Course Of Treatment: On arrival into the ED, the patient is noted to be extremely tachycardic, diaphoretic and appears to be having a panic attack. 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 She is given 2 L fluids, Zofran and Toradol on arrival as well as labs are obtained. She endorses improvement with Zofran improving her nausea, however continues to endorse body aches, worse to her lower back. No photophobia or stiff neck. She denies any UTI symptoms otherwise. She subsequently given fentanyl 50mcg. Labs obtained which included a leukocytosis of 27, with a left shift and an elevated CRP of 226. She continues to complain of low back pain directly over the spine, no CVA tenderness bilaterally. UA shows 3+ leuk esterase, 3+ WBCs, 1+ RBCs, positive for UTI. She has been febrile with tachycardia, up-to-date on her rhythm for imaging evaluation for acute low back pain was reviewed. Xray lumbar spine with ESR and CRP to be used for a moderate suspicion for epidural abscess. This was completed with an elevation an ESR and CRP within normal x-ray lumbar spine. Discussed this case with Dr. Durán. At this time, the patient continues to c/o low back pain rated 3/10 compared to 10/10 (prior to fentanyl administration) but denies any other aches. Tachy at 113 with a temp of 99.1 on re-evaluation. MRI with IV contrast of the lumbar spine obtained to assess epidural abscess. This is negative for any findings. Re-examined the patient and found less pain on palpation to the back after 50mcg fentanyl (repeated.) She is given reglan as well. Repeat WBC and CRP show a decrease from 27 to 20 at WBC and CRP remained the same. She states nausea has improved, but pain remains the same, but improved with fentanyl. Discussed case again with Dr. Durán. She will be treated for UTI and given pain medications and nausea medications for relief. She is OK with this current plan and DC. Offers no complaints or concerns. Provider answered all questions prior to discharge. - Differential Dx/Diagnosis Provider Diagnosis: Nausea & vomiting, Viral syndrome Condition At Discharge: Stable Discharge - Sign-Out/Discharge Documenting (check all that apply): Patient Departure Patient Received Moderate/Deep Sedation with Procedure: No - Discharge Plan Condition: Stable Disposition: HOME Prescriptions: Ondansetron ODT TAB* [Zofran 4 MG Odt TAB*] 4 mg PO Q6H PRN #12 tab.odt MDD 4 PRN Reason: Nausea Sulfamethox/Trimethoprim DS* [Bactrim DS 800/160 TAB*] 1 tab PO BID #10 tab MDD 2 traMADol TAB* [Ultram*] 50 mg PO Q8H PRN #12 tab MDD 3 PRN Reason: Pain Patient Education Materials: Acute Nausea and Vomiting (ED), Viral Syndrome (ED ) Referrals: Feliciano Calderon MD [Primary Care Provider] - Additional Instructions: Tramadol 50 mg may be taken 3-4 times daily for body aches Please use Tylenol and ibuprofen intermittently every 3 hours as well for pain control Tylenol 650 mg and ibuprofen 600 mg Zofran 4 mg up to every 4-6 hours as needed for nausea and vomiting Bactrim twice daily for UTI symptoms 5 days It is very important if you develop any worsening or changing symptoms, return to the ED immediately Try to drink plenty of fluids including Gatorade - Billing Disposition and Condition Condition: STABLE Disposition: Home
[2018-07-03] MEDS ORDERED: fentaNYL* 50 MCG/ML 2 ML VIAL (100 MCG VIAL) IV SLOW PU ONE ×3 (07:16→12:31)
[2018-07-03 07:34] LABS: ABS Basophils 0.1 10^3/ul (0-0.2); ABS Eosinophils 0 10^3/ul (0-0.6); ABS Monocytes 3.1 10^3/ul (0-0.8); ABS Neutrophils 23.1 10^3/ul (1.5-7.7)
[2018-07-03 07:35] LABS: Lymphocytes % 5 %; Monocytes % 10 %; Neutrophil % 85 %
[2018-07-03 07:36] LABS: ABS Neutrophils 23.5 10^3/ul (1.5-7.7)
[2018-07-03 08:37] LABS: Urine Appearance Cloudy; Urine Bacteria 1+ (Absent); Urine Bilirubin Negative (Negative); Urine Blood 2+ (Negative); Urine Color Yellow; Urine Glucose Negative (Negative); Urine Ketones 1+ (Negative); Urine Nitrite Negative (Negative); Urine Protein 1+(30 mg/dL) (Negative); Urine Red Blood Cell 1+(3-5/hpf) (Absent); Urine Squamous Epithelial Cell Present (Absent); Urine Urobilinogen Negative (Negative); Urine White Blood Cell 3+(>20/hpf) (Absent)
[2018-07-03] MEDS ORDERED: Metoclopramide IV* 5 MG/ML 2 ML VIAL IV ONE (09:39)
[2018-07-03] MEDS ORDERED: Gadoteridol* (CONTRAST) 279.3 MG/ML 10 ML IV ONE (10:06)
[2018-07-03 11:22] LABS: Hematocrit 36 % (35-47); Hemoglobin 12.3 g/dl (12.0-16.0); Mean Corpuscular HGB Conc 34 g/dl (31-36); Mean Corpuscular Hemoglobin 32 pg (27-31); Mean Corpuscular Volume 94 fL (80-97); Mean Platelet Volume 9.2 fL (7.4-10.4); Platelet Count 206 10^3/ul (150-450); Red Blood Count 3.84 10^6/ul (4.00-5.40); Red Cell Distribution Width 13 % (10.5-15); White Blood Count 20.4 10^3/ul (3.5-10.8)
[2018-07-03 11:46] LABS: Lymphocytes % 5 %; Monocytes % 2 %; Neutrophil % 93 %
[2018-07-03] MEDS ORDERED: NS 0.9% 1000 ML** 1,000 ML IV ONE (12:39)
[2018-07-03 13:04] LABS: Erythrocyte Sed Rate 63 mm/Hr (0-20)
[2018-07-03 14:17] VITALS: BP 132/56
--- NOTE | 2018-07-05 06:14 | PN ---
Progress Note - Progress Note Date of Service: 07/03/18 Note: Urine culture preliminary grew E. Coli > 100,000 Patient was placed on Bactrim prior to discharge Awaiting sensitivities
--- NOTE | 2018-07-06 10:12 | PN ---
Progress Note - Progress Note Date of Service: 07/03/18 Note: Pt. seen in ED 07/03 and started on Bactrim for UTI. Urine culture today is growing >100k e.col resistant to bactrim. Attempted to call pt. today at 1009, with no answer. Message left to return call. New rx for cipro sent to pt.'s pharmacy. 07/07/18 1002: Pt. returned call to ED. Instructed to dc bactrim and picking supervisor cipro rx and start today. Pt. understands and agrees with plan.
== END 2018-07-03 14:00 | disposition home or self-care (01) ==
LOC: ED 05:48
DX: B34.9 Viral infection, unspecified (principal); R11.2 Nausea with vomiting, unspecified; N39.0 Urinary tract infection, site not specified; B96.20 Unspecified Escherichia coli [E. coli] as the cause of diseases classified elsewhere; M54.5 Low back pain; R00.0 Tachycardia, unspecified; R61 Generalized hyperhidrosis; F40.00 Agoraphobia, unspecified; Z88.5 Allergy status to narcotic agent; Z88.8 Allergy status to other drugs, medicaments and biological substances; Z87.891 Personal history of nicotine dependence
CPT/HCPCS: 36415; 71046; 72110; 72158; 80053; 81003; 81015; 83605; 85025; 85060; 85652; 86140; 87077; 87086; 87186; 96361; 96374; 96375; 96376; 99284; A9579; J1885; J2405; J2765; J3010

== ENCOUNTER 2018-10-05 11:35 | Emergency (ER) | payer BC ==
--- OUTSIDE RECORDS SUMMARY | 2018-10-05 11:42 | XMS REPORT ---
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 Problem Dysthymic disorder F34.1 Active 53146076 Problem Interstitial N30.10 Active 206185969 cystitis Problem Hyperplastic polyp K63.5 Active 58728178 of sigmoid colon Problem Leukocytosis, D72.829 Active 882160674 unspecified type Problem Lichen simplex, L28.0 Active 84262049 chronic Problem Obesity (BMI E66.9 Active [id number] 30.0-34.9) Problem Intractable G43.019 Active 827412673 migraine without aura and without status migrainosus Problem Migraine without G43.009 Active 622671110 aura and without status migrainosus, not intractable Problem Pelvic floor M62.89 Active 428240309 dysfunction in female ALLERGIES No Information ENCOUNTERS Encounter Location Date Diagnosis [facility] [facility] [address] [place], [place] [address] [facility] [address] [place], [place] [address] [facility] [address] [place], [place] [address] [facility] [address] [place], [place] [address] [facility] [address] [place], [place] [address] [facility] [address] [place], [place], [place] [address] Leukocytosis, unspecified type D72.829 [facility] [address] [place], [place], [place] [address] N30.10 ; Pelvic floor dysfunction in female M62.89 ; Other elevated white blood cell count D72.828 and Dysthymia F34.1 [place] [facility] [address] [place] [address] [facility] [facility] [address] [place], [place] [address] [facility] [facility] [address] [place], [place] [address] [facility] [address] [place], [place], [place] [address] immunization Z23 [place] [facility] [address] [place], [place] [address] [facility] [address] [place], [place] [address] Jun, [place] [address] [facility] [address] [place], [place] [address] [facility] [address] [place], Jun, Dysuria R30.0 ; [place] [address] Leukocytosis, unspecified type D72.829 ; Panic disorder with agoraphobia F40.01 and Pelvic floor dysfunction in female M62.[address] Jun, [place] [address] Jun, [place] [address] [facility] [address] [place], Jun, [place] [address] infection J06.9 and Migraine without aura and without status migrainosus, not intractable G43.009 Formerly [facility] [address] [place] [address] Jun, [place] [address] [facility] [address] [place], [place] [address] Jun, [place] [address] [facility] [address] [place], [place] [address] [facility] [address] [place] [address] [facility] [address], [address] [place] [address] [facility] [address] [facility], [place] [address] Jan, Panic disorder with [place] agoraphobia F40.01 [address] Dec, [place] [address] [facility] [address] [facility] [place], [place] [address] [facility] [address] [place] [address], [place], [place] [address] agoraphobia F40.01 ; Intractable migraine without aura and without status migrainosus G43.019 ; NSAID long-term use Z79.1 and Chest pressure R07.[address] [place], [facility] [place] [address] [place], [place] [address] [place], [place] [address] [facility] [address] [facility], Jun, [place] [address] test reading Z11.[address] May, PPD screening test Z11.1 [place] [address] [facility] [address] [place] [address], [place] [address], [place], [place] [address] examination related to employment Z02.1 ; Lichen simplex, chronic L28.0 ; Obesity (BMI 30.0-34.9) E66.9 and BMI 34.0-34.9,adult Z68.[address] [place], Dysthymic disorder F34.1 [place] [address] [facility] [address] [facility], [place], [place] [address] pain R10.84 ; Dysthymic disorder F34.1 ; New daily persistent headache G44.52 ; Obesity (BMI 30-39.9) E66.9 and BMI 34.0-34.9,adult Z68.34 Geoff Gray [address] Jan, [facility] [place] [address] [facility] [address] [place], Jan, [place] [address] pain R10.84 ; Other specified related conditions, unspecified trimester O26.899 ; New daily persistent headache G44.52 ; Obesity (BMI 30-39.9) E66.9 ; BMI 30.0-30.9,adult Z68.30 and Need for influenza vaccination Z23 [address] Dec, [facility] [place] [address] [facility] [address] [place], Sep, [place] [address] abdominal pain R10.[address] Sep, [place] [address] [facility] [address] [place], [place] [address] [facility] [address] [place], [place] [address] Sep, [facility] [place] [address] [facility] [address] [place], [place] [address] [facility] [address] [place], [place] [address] [facility] [address] [place], [place] [address] [facility] [address] [place], [place], [place] [address] abdominal pain R10.31 ; Right upper quadrant abdominal pain R10.11 and Balance problem R26.89 [facility] [facility] [address] [place], [place] [address] [facility] [address] [facility] Jun, [place] [address] Jun, [facility] Geoff Gray [place] [address] Former[facility] [address] [facility] Jun, Dysthymia F34.1 [place] [address] [facility] [address] [place], Jun, [place]yst[place]ym[place] F34.1 [place] [address] [facility] [address] [facility] May, [place] [address] [facility] [address] [facility] [place], [place] [address] [facility] [address] [place], [place], [place] [address] agoraphobia F40.01 ; Dysthymic disorder F34.1 and Rash R21 [employer] license of [facility] [address] [facility] May, Dysthymic disorder F34.1 [place] Panic disorder [place] [address] agoraphobia F40.01 [employer] license of [facility] [address] [facility] [place], [place] [address] Formerly [facility] [address] [facility] [place], Dysthymic disorder F34.1 [place] and Panic disorder with [address] agoraphobia F40.01 [facility] [address] [facility] [place], Dysthymic disorder F34.1 [place] [address] [facility] [address] [facility] [place], [place] [address] [facility] [address] [facility] [place], [place], [place] [address] immunization Z23 ; Dysthymic disorder F34.1 ; Pain in right leg M79.604 and Right lower quadrant abdominal tenderness R10.813 [facility] [address] [facility] [place], [place] [address] [facility] [address] [facility] [address] [place], [address] [place] [address] Formerly [facility] [address] [facility] [place], [place] [address] [facility] [address] [facility] [place], [place] [address] [facility] [address] [place], [place] [address] [facility] [address] [place], [place], [place] [address] extremity G56.90 ; Dysthymia F34.1 and Elevated blood pressure reading without diagnosis of hypertension R03.0 [facility] [address] [place], [place] [address] [facility] [address] [facility] [place], Jul, Pain in [place] M79.601 [place] [address] ; Pain of left arm M79.602 and Myalgia M79.1 Facilitated Enrollment - UNKNOWN Jun, [place] [facility] [address] [place], [place] [address] [place] [facility] [address] [place], [place] [address] [facility] [address] [place], [place], [place] [address] agoraphobia F40.01 [facility] [address] [place] [address] Jun, Panic disorder with [address] [place] agoraphobia F40.01 and [address] Dysthymia F34.1 [facility] [address] [place], [place] [address] Formerly [facility] [address] [place] [address] Jun, Panic disorder with [place] agoraphobia F40.01 and [address] Dysthymia F34.1 [facility] [address] [place] [address] Jun, Panic disorder with [place] agoraphobia F40.01 [address] Formerly [facility] [address] [place] [address] May, Panic disorder with [place] agoraphobia F40.01 and [address] Dysthymia F34.1 [facility] [address] [facility] [place], [place], [place] [address] agoraphobia F40.01 [facility] [address] [place] [address] May, Dysthymia F34.1 and Panic [place] disorder with agoraphobia [address] F40.01 [facility] [address] [place] [address] May, [place] [address] Formerly [facility] [address] [place] [address] May, Dysthymia F34.1 and Panic [place] disorder with agoraphobia [address] F40.[address] [place], [place] [address] [facility] [address] [place], [place] [address] [facility] [address] [place], [place], [place] [address] hematuria N30.01 [facility] [address] [place], Nov, Tendonitis 726.90 [place] [address] Nov, [place] [address] [facility] [address] [facility] [place], [place] [address] [facility] [address] [facility] [place], [place] [address] [place] [address] [facility], [place] [address] [facility] [address] [facility] [place], Jun, Knee pain, [place] 719.46 [place] [address] [facility] [address] [facility] [place], Jun, Knee pain, [place] 719.46 [place] [address] [facility] [address] [facility] [place], [place] [address] [facility] [address] [place] [address] [place], [place], [place] 709.8 [place] [address] [facility] [address] [place] [address] [place], [place] [address] [place], [place], Sibilant rhonchi 786.07 [place] [address] [place], [place], [place] [address] 300.4 ; Fatigue 780.79 and Rash 782.1 [facility] [address] [place] [address] [place], [place] [address] [facility] [address] [place] [address] [place], [place] [address] Jan, [place] [address], Nov, Scabies 133.0 [place] [address] Oct, Impacted cerumen 380.4 [place] [address] [place], [place] [address] [place], [place] [address] Jul, Dysthymic disorder 300.4 [place] and Posttraumatic stress [address] disorder [address] Jul, Dysthymic disorder 300.4 [place] [address] [place] [address] [facility], Jul, Dysthymic [place] 300.4 [place] [address] and Congenital hallux valgus 755.[address] Jul, [place] [address] [facility] [address] [place] [address] Jun, Dysthymic disorder 300.4 [place] [address] Formerly [facility] [address] [place] [address] Jun, Dysthymic disorder 300.4 [place] and Posttraumatic stress [address] disorder 309.81 [facility] [address] [facility], [place] [address] [facility] [address] [facility], Jun, [place] [address] 755.66 and Depression with anxiety 300.4 [facility] [address] [facility], [place] [address] [facility] [address] [facility], [place] [address] [facility] [address] [place] [address], [place] [address] [facility]ly [facility] [address] [place] [address] [place], [place] [address] [facility] [address] [facility], [place] [address] [facility] [address] [facility], [place], UTI [[place] [address] infection] 599.0 ; Pain in joint, lower leg 719.46 and Depression with anxiety 300.4 [facility] [address] [place] [address], [place] [address] Oct, [place] [address] defined subpopulation V70.5 IMMUNIZATIONS No Known Immunizations SOCIAL HISTORY Never Assessed REASON FOR REFERRAL FUNCTIONAL STATUS PLAN OF CARE Activity Details Follow Up 1-2 weeks Reason:dizzinesss fu Pending Test CBC (INCLUDES DIFF/PLT) Pending Test COMPREHENSIVE METABOLIC PANEL Pending Test - Blood Draw Venipuncture VITAL SIGNS Temperature 96.0 degrees Fahrenheit 2018-09-25 Heart Rate 18 2018-09-25 Weight 190.6 2018-09-25 Height 5'5" in 2018-09-25 BMI 31.71 kg/m2 2018-09-25 Oximetry 99 % 2018-09-25 Blood pressure systolic 108 mm Hg 2018-09-25 Blood pressure diastolic 72 mm Hg 2018-09-25 MEDICATIONS Medication Instructions Dosage Frequency Start End Date Duration Status Date Sumatriptan Subcutaneous 0.5 ml as 12h Jun, day(s) Active Succinate 6 Twice a day needed 2019 MG/0.5ML Alprazolam 0.5 Orally BID prn 1 tablet, 20 May, days Active MG panic MDD 2015 Ibuprofen 200 Orally Three 1 tablet 8h Active MG times a day with food or milk as needed PROCEDURES Procedure Date Ordered Result Body Site VENIPUNCT, ROUTINE* venous blood collection September 25, 2018 BODY MASS INDEX DOCD September 25, 2018 Oxygen saturation results documented and reviewed September 25, 2018 BLOOD PRESSURE, MEASURED September 25, 2018 RESULTS Name Result Date Reference Range ECG-[facility] 2018-09-25 REASON FOR VISIT vertigo, PARAM 7. MPT, Preventative template states pap 2016 normal, but report states abnormal. Please clarify. MPT, LACI ROVING WINDER. MPT Insurance Providers [facility] Health Member Patient Patient Patient Patient Patient Subscriber Subscriber Subscriber Group Insurance Plan Plan Plan Plan ID Relationship Address Phone Name Date of ID Name Date of No Type Insurance Insurance Insurance Coverage to Subscriber Address Phone Name Dates [facility] Guzmán [address] [facility] Guzmán self Mackenzi [id number] Plan Med [id number] Plan Med e [place] 8 [facility] [address] Blue [phone] Blue self Mackenzi [id number] Choice Opt 9255 Attn 83 Choice Opt e [place] GG457 [place] [id number] [place] Hplex [place] Dept Hplex [place] [facility] [address] Blue [phone] Blue self Mackenzi [id number] Choice Opt 89 Choice Opt e [place] 4 Medical [place] Medical [address] [facility] Slide [phone] [facility] Slide self Mackenzi [id number] F Dental [place] 02 F Dental [place] [address] 50 Percent Excellus [phone] Excellus self Mackenzi [id number] Essential [id number] Essential e [place] 6 Plan 1 2 [place] Plan 1 2 Medical [address] Medical [facility]QHC Slide [phone] FQHC Slide self Macken[place] [id number] F Medical [place] 02 F Medical [place] [address] 50 percent Blue [phone] Blue self Mackenzi [id number] Choice Opt [id number] 89 Choice Opt e [place] 8 Medical [place] Medical [address] FHP Guzmán [phone] FHP Guzmán self Mackenzi [id number] Plan [id number] Attn 83 Plan e [place] Dental Claims Dental HPlex Dept HPlex [facility] [address] Blue [phone] Blue self Mackenzi [id number] Choice Opt 9255 Attn 83 Choice Opt e [place] GG457 [place] Claims [id number] [place] Hplex [place] Dept Hplex [place] [facility] [address] Medicaid [id number] [phone] Medicaid self Mackenzi [id number] [facility] 00 e [place] [id number] Medicaid [id number] [phone] Medicaid self Mack[place] [id number] Wrap [facility] 56 Wrap e [place] [address] HealthPlex [phone] [facility]lex self Mack[place] [id number] [id number] Attn 83 [phone] e [place] [id number] Dental Claims Dental Exchange Dept Exchange [facility] [address] Case [phone] Case self Mackenzi [id number] Management [place] Management e [facility] [address] [facility] Slide [phone] [facility] Slide self Mack[place] [id number] F Family [place] 02 [place] [address] Planning 70 Percent 70 Percent MEDICAL (GENERAL) HISTORY Type Description Date Medical [...]
[2018-10-05 12:57] VITALS: BP 116/62
[2018-10-05] MEDS ORDERED: Lidocaine 1%* 5 ML VIAL INJ ONE (14:49)
--- NOTE | 2018-10-05 14:50 | UC ---
Laceration HPI - HPI Summary HPI Summary: 28 y/o female presents to the urgent care c/o a splinter in her Rt thumb s/p cutting some tree branches about 1 hr ago. P tried to removed w/o any success. Pain is 6/10 at touch w/ decrease ROM to her Thumb due to pain, Pt is UTD w/ Tetanus vaccine placed 2 months ago. Pt denies fever, numbness or tingling sensation over the RT thumb - History Of Current Complaint Chief Complaint: UCSkin Stated Complaint: RT THUMB INJURY Time Seen by Provider: 10/05/18 14:14 Hx Obtained From: Patient Hx Last Menstrual Period: 09/23/18 Pain Intensity: 8 - Allergies/Home Medications Allergies/Adverse Reactions: Allergies Allergy/AdvReac Type Severity Reaction Status Date / Time paroxetine [From Paxil] Allergy Intermediate Hives Verified 10/05/18 12:51 morphine AdvReac Nausea And Verified 10/05/18 12:51 Vomiting Home Medications: Home Medications ALPRAZolam TAB* [Xanax TAB*] 0.5 mg PO BID PRN 10/05/18 [History Confirmed 10/05] Ibuprofen TAB* [Advil TAB*] 600 mg PO Q6H PRN 10/05/18 [History Confirmed ] SUMAtriptan SQ* [Imitrex SQ*] 6 mg SUBCUT SEE INSTRUCTIONS PRN 10/05/18 [ History Confirmed 10/05/18] PMH/Surg Hx/FS Hx/Imm Hx - Surgical History Surgical History: Yes Surgery Procedure, Year, and Place: TIB/FIB RIGHT LEG COMPOUND FIX WITH [place]SA[place] 2005. BUNIONECTOMY 2013-PLATE IN RIGHT FOOT. SCOPE ON RIGHT KNEE - Social History Alcohol Use: Rare Substance Use Type: None Smoking Status (MU): Former Smoker When Did the Patient Quit Smoking/Using Tobacco: 2012 - Immunization History Most Recent Tetanus Shot: 2 months ago Physical Exam Vital Signs: Initial Vital Signs Temp 98.1 F 10/05/18 12:52 Pulse 72 10/05/18 12:52 Resp 15 10/05/18 12:52 BP 116/62 10/05/18 12:52 Pulse Ox 99 10/05/18 12:52 Laceration Course/Dx - Differential Dx - Laceration/Wound Differental Diagnoses: Cellulitis, Foreign Body, Joint Infection, Laceration, Tendon Laceration - Diagnosis Provider Diagnosis: Foreign body in soft tissue Discharge - Sign-Out/Discharge Documenting (check all that apply): Patient Departure - D/C home All imaging exams completed and their final reports reviewed: Yes - Discharge Plan Condition: Stable Disposition: HOME Prescriptions: Bacitracin OINTMENT* 1 applic TOPICAL BID #1 tube Cephalexin CAP* [Keflex CAP*] 500 mg PO TID #21 cap Patient Education Materials: Soft Tissue Foreign Body (ED) Referrals: Feliciano Calderon MD [Primary Care Provider] - - Billing Disposition and Condition Condition: STABLE Disposition: Home
== END 2018-10-05 16:00 | disposition home or self-care (01) ==
LOC: UCCORT 11:35
DX: S60.351A Superficial foreign body of right thumb, initial encounter (principal); W45.8XXA Other foreign body or object entering through skin, initial encounter; Y93.H2 Activity, gardening and landscaping; Y92.017 Garden or yard in single-family (private) house as the place of occurrence of the external cause; Z88.5 Allergy status to narcotic agent; Z88.8 Allergy status to other drugs, medicaments and biological substances; Z87.891 Personal history of nicotine dependence
CPT/HCPCS: 10120; 99212; G0463